=== PATIENT | male | born 1980 | race Caucasian/White ===

== ENCOUNTER 2016-03-02 00:28 | Emergency (ER) | payer SELFPAY ==
[~2016-03-02] VITALS: Ht 185.4 cm; Wt 113.4 kg
[2016-03-02 01:58] VITALS: BP 139/77
[2016-03-02 03:25] LABS: BASO # 0.1 x10^3/uL (0.0-0.2); BASO % 1 % (0-3); EOS % 4 % (0-3); HEMATOCRIT 46.1 % (39.0-53.0); HEMOGLOBIN 15.7 g/dL (13.0-17.5); LYMPH # 3.3 x10^3/uL (1.0-4.8); LYMPH % 31 % (24-48); MEAN CORPUSCULAR HEMOGLOBIN 31 pg (25-35); MEAN CORPUSCULAR HGB CONC 34 g/dL (31-37); MEAN CORPUSCULAR VOLUME 89 fL (79-100); MONO % 12 % (0-9); NEUT % 53 % (31-73); PLATELET COUNT 359 x10^3/uL (140-400); RED BLOOD COUNT 5.15 x10^6/uL (4.30-5.70); RED CELL DISTRIBUTION WIDTH 13.1 % (11.5-14.5); WHITE BLOOD COUNT 10.7 x10^3/uL (4.0-11.0)
[2016-03-02 03:35] LABS: CALCIUM 9.3 mg/dL (8.5-10.1); CREATININE 1.2 mg/dL (0.7-1.3); GFR 68.9; POTASSIUM 3.9 mmol/L (3.5-5.1)
[2016-03-02 03:41] LABS: ALBUMIN 3.7 g/dL (3.4-5.0); ALBUMIN/GLOBULIN RATIO 0.9 (1.0-1.7); TOTAL BILIRUBIN 0.4 mg/dL (0.2-1.0)
--- NOTE | 2016-03-02 05:09 | PHYS DOC ---
Past Medical History Past Medical History: No Pertinent History Past Surgical History: No Surgical History Alcohol Use: Occasionally Drug Use: None Adult General Chief Complaint Chief Complaint: SUICDAL IDEATION HPI HPI Patient is a 35 year old gentleman who presents to the ER today secondary to his suicidal ideation. Per report patient had exited the picture of himself with a gun to his head as well as guns in the room was found by kc. Patient reports that he is depressed over family issues. Patient reports that his / girlfriend has left him and he is not C his 4-year-old child. Patient denies any history of hypertension diabetes liver longer kidney pills. Patient has had no abdominal or chest surgeries. Patient denies any history of depression and bipolar schizophrenia. Patient denies any prior suicide attempts in the past. Patient is allergic to any medications. Patient does smoke. Patient does not drink or do drugs. Patient denies any medications. Patient denies any other symptomatology. Patient denies any fevers shaking chills nausea vomiting diarrhea chest patrons of breath cough cold . Positive green rhinorrhea. The packing was consultative for evaluation and management of his suicidal ideation. Patient initially was extremely reluctant to be evaluated for mental health issues and currently denies any desire to harm himself. Patient reports that he just a dentist mistake and he does not wish nor did he wish to talk to kill himself. Patient reports it for attention and to try to get empathy from his so that he can see his child. Patient voices complete regret and sending text messages and using this tactic. Patient at this time is willing to be evaluated by mental health. The psychiatric assessment team is here at bedside and they're assisting in his evaluation. [facility] is also at bedside evaluating the patient to a case patient needs to become a court hold. At this time the patient is voluntary. After extensive search I have been informed by the psychiatric assessment team that [facility] would be a appropriate place for him to follow-up. PAT recommendation this time is to discharge him from the ED and transfer him to [facility]. Patient is currently in complete agreement with this plan. Review of Systems Review of Systems Constitutional: Denies fever or chills [] Eyes: Denies change in visual acuity, redness, or eye pain [] HENT: Denies nasal congestion or sore throat [] Respiratory: Denies cough or shortness of breath [] Cardiovascular: No additional information not addressed in HPI [] GI: Denies abdominal pain, nausea, vomiting, bloody stools or diarrhea [] : Denies dysuria or hematuria [] Musculoskeletal: Denies back pain or joint pain [] Integument: Denies rash or skin lesions [] Neurologic: Denies headache, focal weakness or sensory changes [] Endocrine: Denies polyuria or polydipsia [] Allergies Allergies Allergies Coded Allergies Type Severity Reaction Last Updated Verified No Known Drug Allergies 11/01/13 No Physical Exam Physical Exam Constitutional: Well developed, well nourished, no acute distress, non-toxic appearance. [] HENT: Normocephalic, atraumatic, bilateral external ears normal, oropharynx moist, no oral exudates, nose normal. [] Eyes: PERRLA, EOMI, conjunctiva normal, no discharge. [] Neck: Normal range of motion, no tenderness, supple, no stridor. [] Cardiovascular:Heart rate regular rhythm, no murmur [] Lungs & Thorax: Bilateral breath sounds clear to auscultation [] Abdomen: Bowel sounds normal, soft, no tenderness, no masses, no pulsatile masses. [] Skin: Warm, dry, no erythema, no rash. [] Back: No tenderness, no CVA tenderness. [] Extremities: No tenderness, no cyanosis, no clubbing, ROM intact, no edema. [] Neurologic: Alert and oriented X 3, normal motor function, normal sensory function, no focal deficits noted. [] Psychologic: Affect normal, judgement normal, mood normal. [] Current Patient Data Vital Signs Vital Signs Date Time Temp Pulse Resp B/P Pulse Ox O2 Delivery O2 Flow Rate FiO2 03/02/16 00:28 98.3 114 20 175/92 99 98.3 Lab Values Laboratory Tests Test 03/02/16 03:18 White Blood Count 10.7x10^3/uL (4.0-11.0) Red Blood Count 5.15x10^6/uL (4.30-5.70) Hemoglobin 15.7g/dL (13.0-17.5) Hematocrit 46.1% (39.0-53.0) Mean Corpuscular Volume 89fL (79-100) Mean Corpuscular Hemoglobin 31pg (25-35) Mean Corpuscular Hemoglobin Concent 34g/dL (31-37) Red Cell Distribution Width 13.1% (11.5-14.5) Platelet Count 359x10^3/uL (140-400) Neutrophils (%) (Auto) 53% (31-73) Lymphocytes (%) (Auto) 31% (24-48) Monocytes (%) (Auto) 12% (0-9) H Eosinophils (%) (Auto) 4% (0-3) H Basophils (%) (Auto) 1% (0-3) Neutrophils # (Auto) 5.7x10^3uL (1.8-7.7) Lymphocytes # (Auto) 3.3x10^3/uL (1.0-4.8) Monocytes # (Auto) 1.2x10^3/uL (0.0-1.1) H Eosinophils # (Auto) 0.4x10^3/uL (0.0-0.7) Basophils # (Auto) 0.1x10^3/uL (0.0-0.2) Sodium Level 145mmol/L (136-145) Potassium Level 3.9mmol/L (3.5-5.1) Chloride Level 106mmol/L (98-107) Carbon Dioxide Level 29mmol/L (21-32) Anion Gap 10 (6-14) Blood Urea Nitrogen 16mg/dL (8-26) Creatinine 1.2mg/dL (0.7-1.3) Estimated GFR (Cockcroft-Gault) 68.9 BUN/Creatinine Ratio 13 (6-20) Glucose Level 108mg/dL (70-99) H Calcium Level 9.3mg/dL (8.5-10.1) Total Bilirubin 0.4mg/dL (0.2-1.0) Aspartate Amino Transferase (AST) 17U/L (15-37) Alanine Aminotransferase (ALT) 41U/L (16-63) Alkaline Phosphatase 105U/L (46-116) Total Protein 8.0g/dL (6.4-8.2) Albumin 3.7g/dL (3.4-5.0) Albumin/Globulin Ratio 0.9 (1.0-1.7) L Ethyl Alcohol Level < 10mg/dL (0-10) Laboratory Tests 03/02/16 03:18 Laboratory Tests 03/02/16 03:18 EKG EKG [] Radiology/Procedures Radiology/Procedures [] Course & Med Decision Making Course & Med Decision Making Pertinent Labs and Imaging studies reviewed. (See chart for details) [] Dragon Disclaimer Dragon Disclaimer This electronic medical record was generated, in whole or in part, using a voice recognition dictation system. #1 suicide ideation. Patient currently denies any desire to harm himself. Patient reports that the friend that was sent by text was attempted in order to try to relate to his family that he was depressed and really wants his son. Patient currently reports no suicidal ideation or desire to hurt himself. Patient has contracted for safety. Patient is currently being discharged [facility] psychiatric assessment team recommendations. Departure Departure Impression: Primary Impression: Suicidal ideation Additional Impression: Depression Disposition: 65 XFER TO PSYCH HOSP/UNIT Condition: STABLE Referrals: NO PCP (PCP) Patient Instructions: Depression, Adult, No-harm Safety Contract, Suicidal Feelings, How to Help Yourself Problem Qualifiers SOULEYMANE MARINO MD Mar 02, 2016 05:09
--- NOTE | 2016-03-02 11:43 | EKG ---
[facility] [address] [place] [address] Test Date: 2016-03-02 Test Time: 03:50:27 Pat Name: LUIS CHAVEZ Department: Room: Gender: M [employer]aler: : 1980 Requested By: SOULEYMANE MARINO Order Number: [id number] Reading MD: Marleny Stanton Measurements Intervals [place] Rate: 93 P: 38 SD: 170 QRS: 12 QRSD: 82 T: 28 QT: 340 QTc: 425 Interpretive Statements SINUS RHYTHM NORMAL ECG RI6.01 No previous ECG available for comparison Electronically Signed On 03-03-2016 0:42:55 EMPLOYMENT ASSISTANT by Marleny Stanton
== END 2016-03-02 05:30 ==
LOC: ER 00:28 → EEVIPCON 00:28 → ER 05:30
DX: R45.851 Suicidal ideations (principal); F32.9 Major depressive disorder, single episode, unspecified
CPT/HCPCS: 36415; 80053; 85027; 93005; 99285; G0480